=== PATIENT | male | born 2000 | race Hispanic/Latino ===

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

== ENCOUNTER 2020-06-25 10:53 | Outpatient (CLI) | payer OTHER | END 2020-06-25 10:54 | disposition home or self-care (01) | LOC: BICRAD 10:53 | PROVIDERS: ATTEND Nurse Practitioner Family | DX: R76.11 Nonspecific reaction to tuberculin skin test without active tuberculosis (principal) | CPT/HCPCS: 71046 ==

== ENCOUNTER 2022-09-12 10:15 | Emergency (ER) | payer OTHER, SELFPAY | END 2022-09-12 11:04 | disposition home or self-care (01) | LOC: ERS 10:15 | DX: J01.90 Acute sinusitis, unspecified (principal) | CPT/HCPCS: 99282 ==